=== PATIENT | male | born 1980 | race Caucasian/White ===

== ENCOUNTER → 2018-07-14 | Outpatient (CLI) | payer BC | LOC: FIMAGING 15:06 | PROVIDERS: ATTEND Nurse Practitioner Family | DX: R42 Dizziness and giddiness (principal); R11.0 Nausea; J45.909 Unspecified asthma, uncomplicated ==

== ENCOUNTER → 2019-03-28 | Outpatient (CLI) | payer OTHER | LOC: FIMAGING 08:14 → EMCIMAGING 09:46 ==